=== PATIENT | male | born 1950 | race Asian ===

== ENCOUNTER 2016-05-06 05:34 | Outpatient (CLI) | payer OTHER ==
[2016-05-06 09:52] LABS: PLATELET COUNT 109 K/uL (142-355)
[2016-05-06 09:56] LABS: POTASSIUM 3.8 mmol/L (3.6-5.2)
== END 2016-05-06 19:00 | disposition home or self-care (01) ==
LOC: LABW 05:34
PROVIDERS: Internal Medicine Nephrology
DX: E11.65 Type 2 diabetes mellitus with hyperglycemia (principal); N18.2 Chronic kidney disease, stage 2 (mild); E78.00 Pure hypercholesterolemia, unspecified
CPT/HCPCS: 80048; 82951; 82952; 85027

== ENCOUNTER 2016-09-14 05:10 | Outpatient (CLI) | payer OTHER ==
[2016-09-14 05:38] LABS: PLATELET COUNT 110 K/uL (142-355)
[2016-09-14 06:38] LABS: POTASSIUM 4.2 mmol/L (3.6-5.2)
== END 2016-09-14 17:50 | disposition home or self-care (01) ==
LOC: LABW 05:10
PROVIDERS: Internal Medicine Nephrology
DX: N18.3 Chronic kidney disease, stage 3 (moderate) (principal); C95.90 Leukemia, unspecified not having achieved remission
CPT/HCPCS: 36415; 80048; 82040; 82306; 83970; 84100; 85027

== ENCOUNTER 2016-10-17 06:39 | Outpatient (CLI) | payer OTHER | END 2016-10-17 19:29 | disposition home or self-care (01) | LOC: LABW 06:39 → US 09:30 → LABW 19:29 | DX: N50.89 Other specified disorders of the male genital organs (principal); N39.0 Urinary tract infection, site not specified | CPT/HCPCS: 81000; 87088 ==

== ENCOUNTER 2017-01-30 04:57 | Outpatient (CLI) | payer OTHER ==
[2017-01-30 05:26] LABS: PLATELET COUNT 90 K/uL (142-355)
== END 2017-01-30 19:00 | disposition home or self-care (01) ==
LOC: LABW 04:57
PROVIDERS: Internal Medicine Nephrology
DX: N18.3 Chronic kidney disease, stage 3 (moderate) (principal); N45.1 Epididymitis
CPT/HCPCS: 36415; 80048; 81000; 85027

== ENCOUNTER 2017-05-08 04:55 | Outpatient (CLI) | payer OTHER ==
[2017-05-08 05:19] LABS: POTASSIUM 4.2 mmol/L (3.6-5.2)
== END 2017-05-08 19:52 | disposition home or self-care (01) ==
LOC: LABW 04:55
PROVIDERS: Internal Medicine Nephrology
DX: N18.3 Chronic kidney disease, stage 3 (moderate) (principal)
CPT/HCPCS: 36415; 80048

== ENCOUNTER 2017-08-16 04:44 | Outpatient (CLI) | payer OTHER ==
[2017-08-16 05:19] LABS: PLATELET COUNT 102 K/uL (142-355)
[2017-08-16 05:44] LABS: POTASSIUM 3.8 mmol/L (3.6-5.2)
== END 2017-08-16 20:09 | disposition home or self-care (01) ==
LOC: LABW 04:44
PROVIDERS: Internal Medicine Nephrology
DX: N18.3 Chronic kidney disease, stage 3 (moderate) (principal)
CPT/HCPCS: 80048; 81000; 82040; 82306; 83970; 84100; 84155; 85027

== ENCOUNTER 2018-02-16 05:12 | Outpatient (CLI) | payer OTHER ==
[2018-02-16 05:29] LABS: PLATELET COUNT 114 K/uL (142-355)
[2018-02-16 05:48] LABS: POTASSIUM 4.1 mmol/L (3.6-5.2)
== END 2018-02-16 21:28 | disposition home or self-care (01) ==
LOC: LABW 05:12
PROVIDERS: Internal Medicine Nephrology
DX: N18.3 Chronic kidney disease, stage 3 (moderate) (principal); C95.90 Leukemia, unspecified not having achieved remission
CPT/HCPCS: 36415; 80048; 85027

== ENCOUNTER 2018-05-16 04:34 | Outpatient (CLI) | payer OTHER ==
[2018-05-16 06:01] LABS: PLATELET COUNT 95 K/uL (142-355)
== END 2018-05-16 19:31 ==
LOC: LABW 04:34
PROVIDERS: Internal Medicine Nephrology
DX: N18.3 Chronic kidney disease, stage 3 (moderate) (principal); N25.81 Secondary hyperparathyroidism of renal origin; C95.90 Leukemia, unspecified not having achieved remission
CPT/HCPCS: 36415; 80053; 81000; 82306; 82570; 83970; 84155; 85027

== ENCOUNTER 2018-08-15 04:07 | Outpatient (CLI) | payer OTHER ==
[2018-08-15 05:05] LABS: PLATELET COUNT 118 K/uL (142-355)
[2018-08-15 05:09] LABS: POTASSIUM 3.9 mmol/L (3.6-5.2)
== END 2018-08-15 23:41 | disposition home or self-care (01) ==
LOC: LABW 04:07
PROVIDERS: Internal Medicine Nephrology
DX: N25.81 Secondary hyperparathyroidism of renal origin (principal); N18.3 Chronic kidney disease, stage 3 (moderate); C95.90 Leukemia, unspecified not having achieved remission
CPT/HCPCS: 80048; 82040; 82570; 83970; 84100; 84155; 85027

== ENCOUNTER 2018-11-14 04:38 | Outpatient (CLI) | payer OTHER ==
[2018-11-14 05:15] LABS: PLATELET COUNT 99 K/uL (142-355)
[2018-11-14 05:26] LABS: POTASSIUM 4.2 mmol/L (3.6-5.2)
== END 2018-11-14 23:17 | disposition home or self-care (01) ==
LOC: LABW 04:38
PROVIDERS: Internal Medicine Nephrology
DX: N18.3 Chronic kidney disease, stage 3 (moderate) (principal); C95.90 Leukemia, unspecified not having achieved remission; I12.9 Hypertensive chronic kidney disease with stage 1 through stage 4 chronic kidney disease, or unspecified chronic kidney disease
CPT/HCPCS: 36415; 80053; 85027

== ENCOUNTER 2019-02-11 04:47 | Outpatient (CLI) | payer OTHER ==
[2019-02-11 05:14] LABS: PLATELET COUNT 86 K/uL (142-355)
[2019-02-11 06:13] LABS: POTASSIUM 4.1 mmol/L (3.6-5.2)
== END 2019-02-11 20:03 | disposition home or self-care (01) ==
LOC: LABW 04:47
PROVIDERS: Nurse Practitioner Family
DX: K21.9 Gastro-esophageal reflux disease without esophagitis (principal); E11.9 Type 2 diabetes mellitus without complications; C91.Z0 Other lymphoid leukemia not having achieved remission; N18.9 Chronic kidney disease, unspecified; N40.0 Benign prostatic hyperplasia without lower urinary tract symptoms; J45.998 Other asthma; M19.90 Unspecified osteoarthritis, unspecified site; E78.49 Other hyperlipidemia; C83.00 Small cell B-cell lymphoma, unspecified site; C64.1 Malignant neoplasm of right kidney, except renal pelvis
CPT/HCPCS: 36415; 80053; 80061; 83036; 84153; 84439; 84443; 85027

== ENCOUNTER 2019-03-18 04:36 | Outpatient (CLI) | payer OTHER ==
[2019-03-18 05:22] LABS: PLATELET COUNT 84 K/uL (142-355)
[2019-03-18 05:37] LABS: POTASSIUM 4.1 mmol/L (3.6-5.2)
== END 2019-03-18 17:00 | disposition home or self-care (01) ==
LOC: LABW 04:36
PROVIDERS: Internal Medicine Nephrology
DX: N18.3 Chronic kidney disease, stage 3 (moderate) (principal); C95.90 Leukemia, unspecified not having achieved remission; C64.1 Malignant neoplasm of right kidney, except renal pelvis
CPT/HCPCS: 36415; 80048; 82040; 84100; 85027